=== PATIENT | female | born 1940 | race African-American/Black ===

== ENCOUNTER → 2018-11-02 | Outpatient (CLI) | payer MEDICARE ==
--- NOTE | 2018-11-02 16:31 | RAD ---
MR#: [id number] Date of Study: 11/02/2018 Ordering Physician: MARCELL CORTÉS, Referring Physician: MARCELL CORTÉS, Tech: Jovanni Young MBA, RDMS, RVT, RDCS, RTR APPROVED REPORT Patient Location: OUT-PATIENT Indications Rest Pain:Bilaterally VELOCITY AND DOPPLER WAVEFORM ANALYSIS RIGHT cm/secWaveformSeverity LEFT cm/secWaveform Severity dCFA 55.0MonophasicdCFA 85.0Biphasic Prof Fem Art. 70.0BiphasicProf Fem Art. 55.0Biphasic Fem Art Prox. 56.0MonophasicFem Art Prox. 91.0Biphasic Fem Art Mid. 87.0MonophasicFem Art Mid. 120.0Biphasic Fem Art Dist. 53.0MonophasicFem Art Dist. 73.0Biphasic Pop Art(Fossa) 54.0MonophasicPop Art(AK) 104.0Biphasic MEDICAL LIBRARY ASSISTANT Prox. 18.0MonophasicPTA Prox. 45.0Biphasic MEDICAL LIBRARY ASSISTANT Dist. 24.0MonophasicPTA Dist. 72.0Biphasic TILA Prox. 30.0MonophasicATA Prox. 47.0Biphasic DPA 33MonophasicDPA 150Biphasic Image Findings Grayscale images of the bilateral lower extremity arterial vessels reveal mild to moderate diffuse pl aque. On the right there is no significant disease in the above knee vessels. Below the knee there is likel y diffuse disease greater than 50%. There are monophasic waveforms in the anterior and posterior tibi al arteries without any visualization of the peroneal artery. On the left again there is no significant disease above the knee. There is likely mild diffuse diseas e involving the below-knee vessels. Again the peroneal artery is not well visualized. Likely greater than 50% stenosis involving the distal dorsalis pedis artery. Critical Notification Critical Value: No <Conclusion> 1. 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 No focal dise ase identified likely diffuse in nature 2. Mild below-knee disease on the left side. 3. No significant above knee disease bilaterally. Signed by : Gualberto Tavarez, Electronically Approved : 11/02/2018 16:30:58
== END | disposition home or self-care (01) ==
LOC: US 12:30
PROVIDERS: ATTEND Internal Medicine Cardiovascular Disease
DX: M79.604 Pain in right leg (principal); M79.605 Pain in left leg
CPT/HCPCS: 93925

== ENCOUNTER → 2018-12-08 | Outpatient (CLI) | payer MEDICARE ==
--- NOTE | 2018-12-08 10:46 | CARD ---
MR#: [id number] Date of Study: 12/08/2018 Ordering Physician: MARCELL SALAZAR, Referring Physician: MARCELL SALAZAR, Tech: Preeti Sarmiento APPROVED REPORT EXAM: Two-dimensional and M-mode echocardiogram with Doppler and color Doppler. Other Information Quality : AverageHR: 66bpm Technically limited study due to No use of legs scanned supine INDICATION Chest Pain RISK FACTORS Hypertension Hyperlipidemia 2D DIMENSIONS RVDd2.3 (2.9-3.5cm)Left Atrium(2D)2.0 (1.6-4.0cm) IVSd1.2 (0.7-1.1cm)Aortic Root(2D)3.2 (2.0-3.7cm) LVDd4.0 (3.9-5.9cm)LVOT Diameter2.2 (1.8-2.4cm) PWd0.7 (0.7-1.1cm)LVDs1.8 (2.5-4.0cm) FS (%) 55.3 %SV60.5 ml LVEF(%)86.3 (>50%) Aortic Valve AoV Peak Luis.105.3cm/sAoV VTI25.6cm AO Peak GR.4.4mmHgLVOT Peak Luis.90.9cm/s LVOT VTI 26.06cmAO Mean GR.2mmHg PATRICIA (VMAX)2.97mc1YIB (VTI)3.90cm2 Mitral Valve MV E Ykpqaddk86.6cm/sMV DECEL [id number] MV A Edgysywf75.7cm/sMV VUR15uj E/A Ratio1.2MVA (PHT)3.98cm2 TDI E/Lateral E'13.1E/Medial E'15.9 Pulmonary Valve PV Peak Xaohkzsk39.8cm/sPV Peak Grad.2mmHg Tricuspid Valve TR P. Hahezcvr682ts/sRAP [id number] TR Peak Gr.20ndMtEPPZ42hqVw Pulmonary Vein S1 Vhbiyuhg70.5cm/sD2 Nmzddewl19.1cm/s PVa [id number] LEFT VENTRICLE The left ventricle is normal size. There is mild concentric left ventricular hypertrophy. The left ve ntricular systolic function is normal. The Ejection Fraction is 60-65%. There is normal LV segmental wall motion. Transmitral Doppler flow pattern is Grade II-pseudonormal filling dynamics. RIGHT VENTRICLE The right ventricle is normal size. There is normal right ventricular wall thickness. The right ventr icular systolic function is normal. ATRIA The left atrium is borderline dilated. The right atrium size is normal. The interatrial septum is int act with no evidence for an atrial septal defect or patent foramen ovale as noted on 2-D or Doppler i maging. AORTIC VALVE The aortic valve is thickened but opens well. Doppler and Color Flow revealed no significant aortic r egurgitation. There is no significant aortic valvular stenosis. MITRAL VALVE The mitral valve is thickened but opens well. There is no evidence of mitral valve prolapse. There is no mitral valve stenosis. Doppler and Color-flow revealed trace mitral regurgitation. TRICUSPID VALVE The tricuspid valve is not well visualized. Doppler and Color Flow revealed trace tricuspid regurgita tion with an estimated PAP of 29 mmHg. There is no tricuspid valve stenosis. PULMONIC VALVE The pulmonic valve is not well visualized. Doppler and Color Flow revealed trace pulmonic valvular re gurgitation. GREAT VESSELS The aortic root is normal in size. The IVC is normal in size and collapses >50% with inspiration. PERICARDIAL EFFUSION There is no evidence of significant pericardial effusion. Critical Notification Critical Value: No <Conclusion> The left ventricular systolic function is normal. The Ejection Fraction is 60-65%. There is normal LV segmental wall motion. Trace mitral regurgitation. Trace tricuspid regurgitation with an estimated PAP of 29 mmHg. There is no evidence of significant pericardial effusion. Signed by : Marcell Salazar, Electronically Approved : 12/08/2018 10:45:45
== END | disposition home or self-care (01) ==
LOC: ECHO 08:39
PROVIDERS: ATTEND Internal Medicine Cardiovascular Disease
DX: I51.7 Cardiomegaly (principal)
CPT/HCPCS: 93306